=== PATIENT | male | born 1980 | race American Indian/Alaskan Native ===

== ENCOUNTER 2018-11-03 14:32 | Emergency (ER) | payer OTHER ==
--- NOTE | 2018-11-03 15:41 | Emergency Department Report ---
Blank Doc - Documentation Documentation: 38 yo person of size here for difficulty breathing occasional cp and cough and reports feeling lightheaded. H/O asthma no flare up for years and no meds, High Cholesterol and migraine.He is also here for migraine ALEMAN. Dnies NV. Denies leg swelling or any heart disease PE: Lungs, No adventitious sounds heard. NL wob his initial assessment diagnostic orders/clinical plan/treatment (s) is/Are subject change based on patient's health status, clinical progression and re-assessment by fellow clinical providers in the ED. Further treatment and work-up at subsequent clinical providers discetion. Patient/guardians urged not to elope from s their condition may be serious if not clinically assessed and managed. Inital order include:EKG, CXR, LABS, MEDS
[2018-11-03] MEDS ORDERED: DUONEB *Not for PRN Use IH ONE (15:43)
[2018-11-03 16:25] LABS: Basophils % (Auto) 0.7 % (0.0-1.8); Eosinophils # (Auto) 0.2 K/mm3 (0.0-0.4); Eosinophils % (Auto) 5.4 % (0.0-4.3); Hematocrit 41.7 % (35.5-45.6); Hemoglobin 14.1 gm/dl (11.8-15.2); Lymphocytes # (Auto) 1.7 K/mm3 (1.2-5.4); Lymphocytes % (Auto) 36.8 % (13.4-35.0); Mean Corpuscular HGB Conc 34 % (32-34); Mean Corpuscular Volume 82 fl (84-94); Monocytes # (Auto) 0.3 K/mm3 (0.0-0.8); Monocytes % (Auto) 6.7 % (0.0-7.3); Platelet Count 222 K/mm3 (140-440); Red Blood Count 5.08 M/mm3 (3.65-5.03); Red Cell Distribution Width 15.6 % (13.2-15.2)
[2018-11-03 16:37] LABS: BUN/Creatinine Ratio 11; Blood Urea Nitrogen 8 mg/dL (9-20); Calcium 9.1 mg/dL (8.4-10.2); Hemolysis Index 8
[2018-11-03] MEDS ORDERED: DELTASONE PO STA (18:48)
[2018-11-03] MEDS ORDERED: PROVENTIL IH ONE (18:48)
--- NOTE | 2018-11-03 18:53 | Emergency Department Report ---
ED Asthma HPI - General Chief Complaint: Dyspnea/Respdistress Stated Complaint: CHRIS/ASTHMA/CHEST PAIN Time Seen by Provider: 11/03/18 15:10 Source: patient Mode of arrival: Ambulatory Limitations: No Limitations - History of Present Illness Initial Comments: 38-year-old obese -[place] male with past medical history of asthma is out of his medications for quite some time reports emergency department complaining of having a 1-2 day history of non-progressing shortness of breath and wheezing that gets worse at night. States that he's had nausea, productive cough as well. He reports no fever, chills, sweats, numbness, tingling, hemoptysis, h ematemesis, hematochezia, headaches. He denies any abdominal pain, flank pain or back pain. MD Complaint: shortness of breath, wheezing Severity: mild Context: none known Associated Symptoms: none - Related Data Current Asthma Therapy: none Previous Rx's Medication Instructions Recorded Last Taken Type ALBUTEROL Inhaler (OR & NICU) 1 puff IH Q4-6H PRN #1 inha 11/03/18 Unknown Rx [ProAir HFA Inhaler] Montelukast [Singulair] 10 mg PO QPM #14 tablet 11/03/18 Unknown Rx predniSONE [Deltasone] 20 mg PO QDAY #5 tab 11/03/18 Unknown Rx Allergies Allergy/AdvReac Type Severity Reaction Status Date / Time No Known Allergies Allergy Unverified 11/03/18 14:34 ED Review of Systems ROS: Stated complaint: CHRIS/ASTHMA/CHEST PAIN Other details as noted in HPI Constitutional: denies: chills, fever Eyes: denies: eye pain, eye discharge, vision change ENT: denies: ear pain, throat pain Respiratory: wheezing. denies: cough, shortness of breath Cardiovascular: denies: chest pain, palpitations Endocrine: no symptoms reported Gastrointestinal: denies: abdominal pain, nausea, diarrhea Genitourinary: denies: urgency, dysuria Musculoskeletal: denies: back pain, joint swelling, arthralgia Skin: denies: rash, lesions Neurological: denies: headache, weakness, paresthesias Psychiatric: denies: anxiety, depression Hematological/Lymphatic: denies: easy bleeding, easy bruising ED Past Medical Hx - Past Medical History Hx Headaches / Migraines: Yes Hx Asthma: Yes - Surgical History Hx Cholecystectomy: Yes - Social History Smoking Status: Never Smoker Substance Use Type: None - Medications Home Medications: Home Medications Medication Instructions Recorded Confirmed Last Taken Type ALBUTEROL Inhaler (OR & NICU) 1 puff IH Q4-6H PRN #1 inha 11/03/18 Unknown Rx [ProAir HFA Inhaler] Montelukast [Singulair] 10 mg PO QPM #14 tablet 11/03/18 Unknown Rx predniSONE [Deltasone] 20 mg PO QDAY #5 tab 11/03/18 Unknown Rx ED Physical Exam - General Limitations: No Limitations General appearance: alert, in no apparent distress - Head Head exam: Present: atraumatic, normocephalic - Eye Eye exam: Present: normal appearance, PERRL, EOMI. Absent: scleral icterus, conjunctival injection Pupils: Present: normal accommodation - ENT ENT exam: Present: normal exam, normal orophraynx, mucous membranes moist, TM's normal bilaterally - Neck Neck exam: Present: normal inspection - Respiratory Respiratory exam: Present: normal lung sounds bilaterally, wheezes. Absent: respiratory distress, rales, rhonchi, chest wall tenderness, accessory muscle use - Cardiovascular Cardiovascular Exam: Present: regular rate, normal rhythm. Absent: systolic murmur, diastolic murmur, rubs, gallop - GI/Abdominal GI/Abdominal exam: Present: soft, normal bowel sounds - Rectal Rectal exam: Present: deferred - Extremities Exam Extremities exam: Present: normal inspection - Back Exam Back exam: Present: normal inspection - Neurological Exam Neurological exam: Present: alert, oriented X3 - Psychiatric Psychiatric exam: Present: normal affect, normal mood - Skin Skin exam: Present: warm, dry, intact, normal color. Absent: rash ED Course Vital Signs 11/03/18 14:43 Temperature 97.8 F Pulse Rate 84 Respiratory 20 Rate Blood Pressure 157/86 O2 Sat by Pulse 99 Oximetry ED Medical Decision Making - Lab Data Result diagrams: 11/03/18 15:58 11/03/18 15:58 Critical care attestation.: If time is entered above; I have spent that time in minutes in the direct care of this critically ill patient, excluding procedure time. ED Disposition Clinical Impression: SOB (shortness of breath), Wheezing Disposition: [id number] TO HOME OR SELFCARE Is pt being admited?: No Does the pt Need Aspirin: No Condition: Stable Instructions: Reactive Airways Disease (ED) Referrals: [facility] [Provider Group] - 3-5 Days
--- NOTE | 2018-11-03 21:32 | XRay Report ---
PROCEDURE: XR CHEST ROUTINE 2V TECHNIQUE: PA and lateral chest radiographs were obtained. HISTORY: CHRIS, cough/cp COMPARISONS: None. FINDINGS: Visualization of fine detail in portions of the chest is limited by artifact created by large body palencia bitus. There is no definite evidence of focal infiltrate and no evidence of pneumothorax or pleural fluid co llection. The cardiomediastinal silhouette is normal in appearance. The bony structures are unremarkable. IMPRESSION: 1. Visualization of detail is somewhat limited by artifact created by large body habitus. 2. No definite evidence of an acute pulmonary process. If further imaging is required, CT chest may be helpful. This document is electronically signed by Ninoska Adame MD., November 03 2018 04:35:07 PM ET
[2018-11-03 22:49] VITALS: BP 140/84
== END 2018-11-03 22:48 | disposition home or self-care (01) ==
LOC: ED 14:32
DX: J45.909 Unspecified asthma, uncomplicated (principal); G43.909 Migraine, unspecified, not intractable, without status migrainosus; Z90.49 Acquired absence of other specified parts of digestive tract
CPT/HCPCS: 36415; 71046; 80048; 85025; 93005; 93010; 94640; 99284; J7512